=== PATIENT | female | born 1980 | race Caucasian/White ===

== ENCOUNTER → 2021-04-26 | Outpatient (CLI) | payer OTHER ==
[2021-04-30 17:08] LABS: CHLAMYDIA TRACHOMATIS, NAA Negative (Negative); HPV 16 Negative (Negative); HPV 18 Negative (Negative); HPV OTHER HR TYPES Negative (Negative)
== END | disposition home or self-care (01) ==
LOC: LAB SHORT 09:00 → LAB 09:00
PROVIDERS: Family Medicine
DX: Z01.419 Encounter for gynecological examination (general) (routine) without abnormal findings (principal)
CPT/HCPCS: 87491; 87591; 87624; G0123

== ENCOUNTER 2021-08-30 06:07 | Day surgery (SDC) | payer OTHER ==
[~2021-08-30] VITALS: Ht 157.5 cm; Wt 84.8 kg
[~2021-08-30 06:07] MED LIST: BENADRYL25 M1 PO; BUSP5 PO; CYCL10 PO; Calcium Carbon500 MG PO; DIAZ5 PO; MAGCHL64ER PO; VITAMIN D310 MC4 PO; [UNRECOGNIZED DRUG - OTHER] PO
[2021-08-30] MEDS ORDERED: MULVITA PO (06:24)
--- NOTE | 2021-08-30 07:12 | NUR ---
History, Chart, Medications and Allergies reviewed before start of procedure. Lungs clear T/O to Auscultation. Patient confirms NPO status and agrees with scheduled surgery. Pre-Op teaching done. Pt verbalizes understanding. Patient States Post-Procedure ride home has been arranged. Patient reports completing Chlorhexadine shower X2 prior to admission to hospital.
--- NOTE | 2021-08-30 15:58 | NUR ---
DISCHARGE SUMMARY PT A&OX4, VSS/RA, SILVINA PO, VOIDING WELL, AMBULATING INDEPENDENTLY IN ROOM/ TO BRP, PAIN MANANGED WITH 5 MG NORCO. IV DC'D. DC INSTRUCTIONS PROVIDED. PT REP UNDERSTANDING THOSE INSTRUCTIONS, AND MEDICATION SCRIPTS ALREADY FILLED AT HOME. LEFT FLOOR VIA WC WITH SN, TO GO HOME WITH BF, WITH ALL PERSONAL POSSESSIONS.
== END 2021-08-30 15:59 | disposition home or self-care (01) ==
LOC: ORSCMMR 06:07 → ORD 07:30 → SURS 11:21 → ORSCMMR 11:21 → SURS 15:59 → ORSCMMR 15:59
PROVIDERS: Obstetrics & Gynecology
PROC: 0UT94ZZ Resection of Uterus, Percutaneous Endoscopic Approach (ICD-10-PCS; principal; 2021-08-30 07:30)
PROC: 0UT74ZZ Resection of Bilateral Fallopian Tubes, Percutaneous Endoscopic Approach (ICD-10-PCS; principal; 2021-08-30 07:30)
PROC: 8E0W4CZ Robotic Assisted Procedure of Trunk Region, Percutaneous Endoscopic Approach (ICD-10-PCS; principal; 2021-08-30 07:30)
DX: N92.0 Excessive and frequent menstruation with regular cycle (principal); R87.619 Unspecified abnormal cytological findings in specimens from cervix uteri; D50.0 Iron deficiency anemia secondary to blood loss (chronic); N80.0 Endometriosis of uterus; D25.9 Leiomyoma of uterus, unspecified; Z87.891 Personal history of nicotine dependence; K21.9 Gastro-esophageal reflux disease without esophagitis; E66.9 Obesity, unspecified; Z68.34 Body mass index [BMI] 34.0-34.9, adult; Z79.899 Other long term (current) drug therapy
CPT/HCPCS: 58571; S2900; 86850; 86900; 86901; 88307; A9270; J0690; J1100; J1885; J2250; J2405; J2704; J2765; J3010; J7120

== ENCOUNTER → 2022-05-14 | Outpatient (CLI) | payer OTHER ==
[~2022-05-14] MED LIST changes: +MULVITA PO
[2022-05-14 20:16] LABS: Follicle Stimulating Hormone 5.1 mIU/ml; Luteinizing Hormone 11.3 mIU/ml
== END | disposition home or self-care (01) ==
LOC: LAB SHORT 16:00 → LAB 16:00
PROVIDERS: Student in an Organized Health Care Education/Training Program
DX: Z78.0 Asymptomatic menopausal state (principal)
CPT/HCPCS: 83001; 83002

== ENCOUNTER → 2024-11-22 | Outpatient (CLI) | payer OTHER ==
[~2024-11-22] MED LIST changes: +TIZA4; +TOPI25
[2024-11-27 09:23] LABS: CORTISOL,U FREE - RATIO TO CRT 10.85 ug/g CRT; CORTISOL,URINE FREE - PER 24H 12.5 ug/d (<=45.0); CORTISOL,URN FREE - PER VOLUME 5.97 ug/L; CREATININE,URINE - PER 24H 1155 mg/d (700-1600); CREATININE,URINE - PER VOLUME 55 mg/dL; HOURS COLLECTED 24 hr; TOTAL VOLUME 2100 mL
== END | disposition home or self-care (01) ==
LOC: LAB 06:45 → LAB SHORT 06:45
PROVIDERS: Family Medicine
DX: R14.0 Abdominal distension (gaseous) (principal)
CPT/HCPCS: 81050; 82530

== ENCOUNTER → 2024-12-07 | Outpatient (CLI) | payer OTHER | LOC: LAB SHORT 18:16 → LAB 18:16 | DX: R82.998 Other abnormal findings in urine (principal) | CPT/HCPCS: 87077; 87086; 87186 ==

== ENCOUNTER 2025-06-03 09:01 | Day surgery (SDC) | payer OTHER ==
[~2025-06-03] VITALS: Ht 157.5 cm; Wt 90.0 kg
[2025-06-03] VITALS (22 sets, daily range): BP systolic 82–113; BP diastolic 43–80
[~2025-06-03 09:01] MED LIST changes: +ATOMOXETINE HCL25 MG PO; -MAGCHL64ER PO; +ONDA4 PO; +PRAZ2 PO; +SLOW-MAG71.5 MG PO; -TIZA4; +TIZA4 PO; -TOPI25; +TOPI25 PO
--- NOTE | 2025-06-03 09:27 | NUR ---
Ambulatory in Day Surgery History, Chart, Medications and Allergies reviewed before start of procedure. Pre-Op teaching done. Pt verbalizes understanding. Patient States Post-Procedure ride home has been arranged.
--- NOTE | 2025-06-03 10:07 | NUR ---
06/03/25 Mavis Hooper CONFIRMED AND REVIEWED H&P, MEDCICATIONS, ALLERGIES, MEDICAL HISTORY, RESPIRATORY HISTORY, VITAL SIGNS, 3-LEAD EKG, CONSENTS, AND PHYSICIAN ORDERS. PATIENT CONFIRMS NPO STATUS AND AGREES WITH SCHEDULED PROCEDURE. MONITOR INTACT WITH CONTINUOUS PULSE OXIMETRY, CAPNOGRAPHY, 3-LEAD EKG, INTERMITTENT BP. SUPPLEMENTAL O2 TO BE TITRATED THROUGHOUT PROCEDURE TO MAINTAIN O2 SATURATION ABOVE 90%. PATIENT DETERMINED TO BE ASA APPROPRIATE FOR PROPOFOL SEDATION PRIOR TO START OF PROCEDURE BY DR. ANTHONY. MALLAMPATI CLASS 2 AIRWAY: COMPLETE VISUALIZATION OF THE UVULA.
[2025-06-03] MEDS ORDERED: ePHEDrine Sulfate 50 MG/ML 1ML Injection ONE (10:11)
[2025-06-03] MEDS ORDERED: Midazolam HCl 1MG / ML 2ML Vial ONE (10:11)
[2025-06-03] MEDS ORDERED: FentaNYL Citrate 50 MCG/ML 2 ML Injection ONE (10:13)
--- NOTE | 2025-06-03 10:57 | NUR ---
Discharge instructions reviewed with patient. Patient verbalizes understanding. Copy given to patient to take home. Patient States Post-Procedure ride home has been arranged. Discharged via wheelchair to private car for ride home.
== END 2025-06-03 10:59 | disposition home or self-care (01) ==
LOC: ORSCMMR 09:01 → ORD 09:45 → ORSCMMR 10:15 → ORD 10:15 → ORSCMMR 10:59
PROVIDERS: Internal Medicine Gastroenterology
PROC: 0DBN8ZX Excision of Sigmoid Colon, Via Natural or Artificial Opening Endoscopic, Diagnostic (ICD-10-PCS; principal; 2025-06-03 10:15)
DX: Z12.11 Encounter for screening for malignant neoplasm of colon (principal); D12.5 Benign neoplasm of sigmoid colon; K90.0 Celiac disease; F41.9 Anxiety disorder, unspecified; F43.10 Post-traumatic stress disorder, unspecified; Z79.899 Other long term (current) drug therapy; F17.290 Nicotine dependence, other tobacco product, uncomplicated
CPT/HCPCS: 88305; J2250; J2704; J3010; J7120